=== PATIENT | female | born 1970 | race Asian ===

== ENCOUNTER → 2022-11-06 | Day surgery (SDC) | payer BC | END | disposition home or self-care (01) | LOC: FRADUS-SUR 10:05 | PROVIDERS: ATTEND Family Medicine | PROC: 0HBU3ZX Excision of Left Breast, Percutaneous Approach, Diagnostic (ICD-10-PCS; principal; 2022-11-06) | DX: C50.812 Malignant neoplasm of overlapping sites of left female breast (principal); N63.42 Unspecified lump in left breast, subareolar | CPT/HCPCS: 19083; 77065-TC; 87899; 88305-TC; 88342-TC; A4648 ==

== ENCOUNTER → 2022-11-20 | Day surgery (SDC) | payer BC | END | disposition home or self-care (01) | LOC: FRADUS-SUR 12:33 | PROVIDERS: ATTEND Family Medicine | PROC: 0HBT3ZX Excision of Right Breast, Percutaneous Approach, Diagnostic (ICD-10-PCS; principal; 2022-11-20) | DX: Z53.8 Procedure and treatment not carried out for other reasons (principal); N63.10 Unspecified lump in the right breast, unspecified quadrant | CPT/HCPCS: 19085; A9579; C1887 ==